=== PATIENT | female | born 1960 | race Caucasian/White ===

== ENCOUNTER 2016-07-15 14:42 | Emergency (ER) | payer OTHER ==
[~2016-07-15] VITALS: Wt 70.0 kg
[~2016-07-15 14:42] MED LIST: ALPR0.5T PO; BUTA1CAP39 PO; LIOT5TAB3 PO; LORA1TAB PO; NAPR-688 PO; PANT40TA4 PO; PROP60CA PO; SYN1 PO; TRAZ50TA18 PO; VALS160T20 PO; ZOLP5TAB6 PO
[2016-07-15] MEDS ORDERED: HYDROmorphONE 1 MG/ML SYG IV STA (18:56)
[2016-07-15] MEDS ORDERED: FAMOTIDINE 20 MG TAB PO STA (18:56)
[2016-07-15] MEDS ORDERED: SOD CHLORIDE 0.9% 500 ML IV STA (18:56)
[2016-07-15] MEDS ORDERED: LIDOCAINE/MYLANTA 40 ML BTL PO STA (18:56)
[2016-07-15 19:27] LABS: ADD SCAN DIFF NO
[2016-07-15 19:28] LABS: BASOPHILS % 0.7 % (0.0-2.0); EOSINOPHILS # 0.5 10^3/ul (0.0-0.5); EOSINOPHILS % 8.4 % (0.0-7.0); HEMATOCRIT 39.7 % (37.0-47.0); HEMOGLOBIN 13.8 g/dl (12.0-16.0); LYMPHOCYTES # 2.2 10^3/ul (0.8-2.9); LYMPHOCYTES % 40.8 % (15.0-51.0); MEAN CORPUSCULAR HEMOGLOBIN 30.1 pg (29.0-33.0); MEAN CORPUSCULAR HGB CONC 34.8 g/dl (32.0-37.0); MEAN CORPUSCULAR VOLUME 86.5 fl (82.0-101.0); MEAN PLATELET VOLUME 10.1 fl (7.4-10.4); MONOCYTE # 0.5 10^3/ul (0.3-0.9); MONOCYTES % 9.5 % (0.0-11.0); NEUTROPHIL # 2.2 10^3/ul (1.6-7.5); NEUTROPHILS % 40.4 % (39.0-77.0); PLATELET COUNT 267 10^3/UL (140-415); RED BLOOD COUNT 4.59 10^6/ul (4.20-5.40); WHITE BLOOD COUNT 5.5 10^3/ul (4.8-10.8)
[2016-07-15 19:38] LABS: ADD UMIC YES; URINE BILIRUBIN (Dip) NEGATIVE (NEGATIVE); URINE BLOOD (Dip) TRACE (NEGATIVE); URINE COLOR LT. YELLOW (YELLOW); URINE GLUCOSE (Dip) NEGATIVE (NEGATIVE); URINE KETONES (Dip) NEGATIVE (NEGATIVE); URINE LEUKOCYTE ESTERASE (Dip) NEGATIVE (NEGATIVE); URINE NITRITE (Dip) NEGATIVE (NEGATIVE); URINE TOTAL PROTEIN (Dip) NEGATIVE (NEGATIVE); URINE UROBILINOGEN (Dip) 0.2 E.U./dL (0.1-1.0)
[2016-07-15 19:56] LABS: SQUAMOUS EPITHELIAL CELL,UR FEW
--- NOTE | 2016-07-15 20:04 | RADRPT ---
PROCEDURE: CT abdomen and pelvis without contrast. CLINICAL INDICATION: Abdominal pain TECHNIQUE: CT scan of the abdomen and pelvis without contrast was performed. Sagittal and coronal reformatted images were obtained from the axial source images. CTDI = 13.74 mGy; DLP = 793.23 mGy-c m COMPARISON: Ultrasound 07/09/2014 FINDINGS: Visualized lower thorax: Mild traction type bronchiectasis of the lower lobes is present with minim al basilar scarring but no evidence of infiltrates. The visualized heart is top normal in size with minimal pericardial thickening. There is no evidence for pleural effusion. Liver, gallbladder, pancreas and spleen: The liver is now enlarged the maximum dimension measuring 22 cm. There is heterogeneous decibels no attenuation throughout the hepatic parenchyma consistent with hepatic steatosis, geographic areas of normal attenuation sparing seen scattered throughout the liver. There is no evidence for a liver mass or ductal dilatation. The gallbladder is unremarkabl e. No common bile duct abnormality is demonstrated. The pancreas is unremarkable. Punctate calcif ication of the splenic surface likely a granuloma, no splenomegaly is present. Adrenal glands and genitourinary system: The adrenal glands are normal bilaterally. In the right ki dney there are tiny nonobstructing calculi, a total of 2 stones visible age measure approximate 2 mm in the interpolar area. There is no hydronephrosis. The left kidney has approximately 401 mm calc koffi predominate in the upper pole without hydronephrosis. An area of cortex scarring in the posteri or left upper pole is noted. The ureters are unremarkable. No urinary bladder abnormality is demon strated. The uterus is not visualized consistent with prior hysterectomy. No ovarian or adnexal ma sses are demonstrated. Gastrointestinal system: A small sliding hiatal hernia is suspected, the remainder of the stomach i s unremarkable and without wall thickening. The small bowel is normal in caliber with no ileus, obs truction or wall thickening. The appendix and surrounding fat are within the limits of normal. A m oderate amount of fecal debris is seen within the proximal and mid colon. There is no evidence for colitis or diverticulitis. Peritoneum, retroperitoneum, lymph nodes and vessels: The abdominal aorta is normal in caliber. The re is no evidence for atherosclerotic calcification. The inferior vena cava is unremarkable. There is no evidence for adenopathy or mass. There is no ascites. No pneumoperitoneum is evident. Osseous structures and musculoskeletal findings: There is no fracture, lytic or blastic lesion. No muscular abnormality or soft tissue pathology is present. RPTAT:HJJR IMPRESSION: 1. Interval development of hepatomegaly and hepatic steatosis compared to the prior ultrasound of 07/09/2014. 2. Tiny bilateral nonobstructing intrarenal calculi, no ureteral calculi or hydronephrosis identifi ed. 3. Constipation pattern. 4. Sliding hiatal hernia. 5. Changes of prior hysterectomy. Nadeem Piña Physician Date Time Electronically viewed and signed by Nadeem Piña Physician on 07/15/2016 20:04 JR/
[2016-07-15 20:44] LABS: POTASSIUM 3.9 mmol/L (3.5-5.1)
[2016-07-15 20:47] LABS: ALBUMIN/GLOBULIN RATIO 1.35; BILIRUBIN,INDIRECT 0.4 mg/dl (0-1.1); BILIRUBIN,TOTAL 0.4 mg/dl (0.2-1.3); CALCIUM 9.9 mg/dl (8.4-10.2); CREATININE 0.64 mg/dl (0.44-1.00); TOTAL PROTEIN 8.7 g/dl (6.1-8.1)
[2016-07-15] MEDS ORDERED: AMLO5TAB4 PO (20:55)
[2016-07-15] MEDS ORDERED: VALS320T11 PO (20:55)
[2016-07-15 21:22] VITALS: BP 164/89; PULSE 60; RESP 18
[2016-07-15] MEDS ORDERED: FAMO-18 PO (21:22)
[2016-07-15] MEDS ORDERED: SUCR1TAB56 PO (21:22)
[2016-07-15] MEDS ORDERED: METO10TA92 PO (21:22)
--- NOTE | 2016-07-16 00:37 | ERD ---
ER Documentation Chief Complaint Date/Time DATE: 07/16/16 TIME: 00:30 Chief Complaint abd pain for the past 2 wks. no n/v. no diarrhea. no cp or sob HPI 56-year-old female with a history of hypertension and hypothyroidism presenting with epigastric pain. She states that she has had the pain intermittently for the past 2 weeks. She has had no associated nausea, vomiting, diarrhea, constipation, fevers or chills. Last week she had 3 days of dark stools which has since resolved. She denies any hematochezia. No weight loss or night sweats. The pain is worse with eating, improves with not eating. It is in the epigastric region, max 8 out of 10, radiating to her back. Currently she does not have much pain she states. She denies any NSAID use. Her primary care doctor is Dr. Steen, with whom she has an appointment in 1 week. ROS All systems reviewed and are negative except as per history of present illness. Medications Home Meds Active Scripts Sucralfate* (Carafate*) 1 Gm Tab, 1 GM PO QID, #60 TAB take before eating Prov:WALLY MACHUCA MD 07/15/16 Metoclopramide* (Reglan*) 10 Mg Tablet, 10 MG PO Q6 Y for NAUSEA AND/OR VOMITING , #10 TAB Prov:WALLY MACHUCA MD 07/15/16 Famotidine* (Pepcid*) 20 Mg Tablet, 20 MG PO BID, #28 TAB Prov:WALLY MACHUCA MD 07/15/16 Reported Medications Valsartan* (Diovan*) 320 Mg Tablet, 320 MG PO DAILY, TAB 07/15/16 Amlodipine Besylate* (Norvasc*) 5 Mg Tablet, 5 MG PO DAILY, TAB 07/15/16 Pantoprazole* (Pantoprazole*) 40 Mg Tablet.dr, 40 MG PO DAILY, TAB 11/29/14 Propranolol Hcl* (Propranolol Hcl*) 60 Mg Cap.sa.24h, 120 MG PO DAILY, TAB 05/23/14 Levothyroxine Sodium* (Synthroid*) 100 Mcg Tablet, 100 MCG PO DAILY, TAB 05/23/14 Discontinued Reported Medications Trazodone Hcl* (Trazodone Hcl*) 50 Mg Tablet, 25 MG PO HS Y for SLEEP, TAB 11/29/14 Zolpidem Tartrate* (Zolpidem Tartrate*) 5 Mg Tablet, 5 MG PO HS Y, TAB 11/29/14 Lorazepam* (Lorazepam*) 1 Mg Tablet, 1 MG PO HS Y for ANXIETY, TAB 11/29/14 Liothyronine Sodium* (Cytomel*) 5 Mcg Tablet, 5 MCG PO DAILY, TAB 05/23/14 Valsartan* (Diovan*) 160 Mg Tablet, 160 MG PO BID, TAB 05/23/14 Discontinued Scripts [id number]-Ydhkgjixlj-Dpipdahe-Codeine* (Fioricet w/ Codeine*) [id number] 30MG Capsule, 1 CAP PO Q6H Y for PAIN LEVEL 1-5, #20 CAP Prov:POOL MCCAIN NP 12/09/14 Naproxen* (Naproxen*) 500 Mg Tablet, 500 MG PO BID Y for PAIN, #30 TAB Prov:NICOLÁS HENAO MD 11/29/14 Alprazolam* (Xanax*) 0.5 Mg Tab, 0.5 MG PO Q8H Y for ANXIETY, #12 TAB Prov:NICOLÁS HENAO MD 11/29/14 Allergies Allergies: Coded Allergies: No Known Allergy (Unverified , 07/15/16) PMhx/Soc History of Surgery: Yes (hysterectomy, c/section x3) Anesthesia Reaction: No Hx Neurological Disorder: No Hx Respiratory Disorders: No Hx Cardiac Disorders: Yes (htn, ) Hx Psychiatric Problems: Yes (depression) Hx Miscellaneous Medical Probl: Yes (migraine, hypothyroid) Hx Alcohol Use: No Hx Substance Use: No Hx Tobacco Use: No Smoking Status: Never smoker FmHx Family History: other (Pancreatic cancer mother) Physical Exam Vitals Vital Signs Date Time Temp Pulse Resp B/P Pulse Ox O2 Delivery O2 Flow Rate FiO2 07/15/16 21:22 60 18 164/89 100 Room Air 07/15/16 15:21 98.9 61 21 160/78 95 Physical Exam Const: Nontoxic, well-appearing, no distress Head: Atraumatic Eyes: Normal Conjunctiva ENT: Normal External Ears, Nose and Mouth. Neck: Full range of motion..~ No meningismus. Resp: Clear to auscultation bilaterally Cardio: Regular rate and rhythm, no murmurs Abd: Soft, mild epigastric tenderness to palpation, no rebound or guarding, non distended. Normal bowel sounds Rectal: Normal tone, No mass Stool: Brown Guaiac: Negative Skin: No petechiae or rashes Back: No midline or flank tenderness Ext: No cyanosis, or edema Neur: Awake and alert Psych: Normal Mood and Affect Result Diagram: 07/15/16190507/15/161905 Results 24 hrs Laboratory Tests Test 07/15/16 19:06 07/15/16 21:15 White Blood Count 5.510^3/ul Red Blood Count 4.5910^6/ul Hemoglobin 13.8g/dl Hematocrit 39.7% Mean Corpuscular Volume 86.5fl Mean Corpuscular Hemoglobin 30.1pg Mean Corpuscular Hemoglobin Concent 34.8g/dl Red Cell Distribution Width 13.0% Platelet Count 69403^3/UL Mean Platelet Volume 10.1fl Neutrophils % 40.4% Lymphocytes % 40.8% Monocytes % 9.5% Eosinophils % 8.4% Basophils % 0.7% Nucleated Red Blood Cells % 0.0/100WBC Neutrophils # 2.210^3/ul Lymphocytes # 2.210^3/ul Monocytes # 0.510^3/ul Eosinophils # 0.510^3/ul Basophils # 0.010^3/ul Nucleated Red Blood Cells # 0.010^3/ul Urine Color LT. YELLOW Urine Clarity CLEAR Urine pH 7.0 Urine Specific [place] 1.010 Urine Ketones NEGATIVE Urine Nitrite NEGATIVE Urine Bilirubin NEGATIVE Urine Urobilinogen 0.2 E.U./dL Urine Leukocyte Esterase NEGATIVE Urine Microscopic RBC 2-5/HPF Urine Microscopic WBC 0-2/HPF Urine Squamous Epithelial Cells FEW Urine Hemoglobin TRACE Urine Glucose NEGATIVE% Urine Total Protein NEGATIVE Sodium Level 142mmol/L Potassium Level 3.9mmol/L Chloride Level 102mmol/L Carbon Dioxide Level 29mmol/L Anion Gap 15 Blood Urea Nitrogen 22mg/dl Creatinine 0.64mg/dl Glucose Level 102mg/dl Calcium Level 9.9mg/dl Total Bilirubin 0.4mg/dl Direct Bilirubin 0.00mg/dl Indirect Bilirubin 0.4mg/dl Aspartate Amino Transf (AST/SGOT) 41IU/L Alanine Aminotransferase (ALT/SGPT) 70IU/L Alkaline Phosphatase 97IU/L Total Protein 8.7g/dl Albumin 5.0g/dl Globulin 3.70g/dl Albumin/Globulin Ratio 1.35 Lipase 129U/L Stool Occult Blood NEGATIVE Current Medications Medications (Trade) Dose Ordered Sig/Jakub Route PRN Reason Start Time Stop Time Status Last Admin Dose Admin Sodium Chloride (NS) 500 ml @ 500 mls/hr Q1H STAT IV 07/15/16 18:56 07/15/16 19:55 DC 07/15/16 19:11 Hydromorphone HCl (Dilaudid) 1 mg ONCE STAT IV 07/15/16 18:56 07/15/16 18:58 DC 07/15/16 19:10 Famotidine (Pepcid) 20 mg ONCE STAT PO 07/15/16 18:56 07/15/16 18:58 DC 07/15/16 19:10 Miscellaneous Medication (Gi Cocktail (2)) 40 ml ONCE STAT PO 07/15/16 18:56 07/15/16 18:58 DC 07/15/16 19:10 Procedures/MDM EMERGENT LABS AND DIAGNOSTIC STUDIES: Lab Results above were reviewed and interpreted by me. CBC, CMP, lipase show no significant abnormalities 12-lead EKG was interpreted by Heath Machuca MD: Normal Sinus Rhythm with ventricular rate of 63 beats per minute Normal axis Normal intervals No acute ST or T wave changes suggestive of acute ischemia or STEMI. Radiology Results as interpreted by Radiology below were reviewed by SLee Machuca MD: CT abdomen and pelvis: IMPRESSION: 1. Interval development of hepatomegaly and hepatic steatosis compared to the prior ultrasound of 07/09/2014. 2. Tiny bilateral nonobstructing intrarenal calculi, no ureteral calculi or hydronephrosis identified. 3. Constipation pattern. 4. Sliding hiatal hernia. 5. Changes of prior hysterectomy. Physician Ronnie Date Time Electronically viewed and signed by Physician Ronnie on 07/15/2016 20:04 Initial Nursing notes reviewed. Previous Medical Records requested via the Electronic Health Record. EMERGENCY DEPARTMENT COURSE / MEDICAL DECISION MAKING: Patient is presenting with epigastric pain. Her vitals are normal. Differential includes but is not limited to biliary colic, biliary obstruction, acute cholecystitis, pancreatitis, hepatitis, lower lobe pneumonia, gastritis, colitis, cardiac pathology, aortic dissection, ureterolithiasis, pyelonephritis. Labs were ordered to evaluate for above and were unremarkable chest. I have a low suspicion for acute coronary syndrome, aortic dissection, or pneumonia. CT of the abdomen/pelvis was ordered and showed a hiatal hernia with some constipation, but no acute emergent pathology. Her rectal exam did not show blood and her FOBT was negative. I suspect the patient's pain is likely secondary to gastritis versus peptic ulcer disease. However she is stable for continued outpatient follow-up and does not need admission at this time as she does not have any active bleeding. Her pain was controlled after pain medications. She remained hemodynamically stable while in the ED. I recommended she see her primary care doctor as scheduled to discuss referral to a garment supervisor for possible endoscopy. I will place her on Pepcid, sucralfate, and give her Reglan to use as needed on discharge. Return precautions were discussed. She was provided with a copy of her results from today. Patient's blood pressure was elevated (>120/80) but appears stable without evidence of hypertensive emergency or urgency. The patient was counseled about the risks of hypertension and urged to pursue outpatient monitoring and therapy within a week with their primary care physician. Departure Diagnosis: Primary Impression: Epigastric abdominal pain Additional Impression: Hiatal hernia Condition: Stable Patient Instructions: Gastritis Vs. Ulcer, Epigastric Pain (Uncertain Cause) Referrals: SYDNEE STEEN MD (PCP) Additional Instructions: Follow-up as scheduled with your primary care doctor. You will need a referral to a garment supervisor. Return to the ER for any worsening symptoms. WALLY MACHUCA MD Jul 16, 2016 00:37
== END 2016-07-15 22:27 | disposition home or self-care (01) ==
LOC: E/R 14:42
DX: R10.13 Epigastric pain (principal); K44.9 Diaphragmatic hernia without obstruction or gangrene; I10 Essential (primary) hypertension; E03.9 Hypothyroidism, unspecified
CPT/HCPCS: 74176; 80053; 81001; 81003; 82270; 83690; 85025; 93005; J1170; J7040; 36415; 96374

== ENCOUNTER 2018-11-16 20:42 | Emergency (ER) | payer OTHER ==
[~2018-11-16] VITALS: Ht 167.6 cm; Wt 76.5 kg
[~2018-11-16 20:42] MED LIST changes: -ALPR0.5T PO; +AMLO5TAB4 PO; -BUTA1CAP39 PO; +CEPH-443 PO; +FAMO-96 PO; +LEVO-86 PO; -LIOT5TAB3 PO; -LORA1TAB PO; +METO10TA92 PO; -NAPR-688 PO; +OMEP40CA6 PO; +OXYC-279 PO; +SUCR1TAB56 PO; -SYN1 PO; -TRAZ50TA18 PO; -VALS160T20 PO; +VALS320T2 PO; -ZOLP5TAB6 PO
[2018-11-16 21:02] VITALS: Ht 167.6 cm; Wt 76.5 kg
--- NOTE | 2018-11-16 23:24 | ERD ---
ER Documentation Chief Complaint Chief Complaint EPIGASTRIC & MID STERNAL CP SINCE YESTERDAY WITH SOB HX OF HTN & ANXIETY HPI This is a 58-year-old woman with a history of H. pylori gastritis presenting with epigastric abdominal pain similar to prior episodes, she states the pain has been intermittent since yesterday usually lasting for about 1 to 3 hours and then resolving, she has had chest pain, headache, shortness of breath, dizziness as well. While in the waiting room she "fainted", this episode was witnessed and there was no seizure activity. Patient is not currently taking medications for gastritis, she has had no blood per rectum or melena, no fevers or chills, no dysuria. ROS All systems reviewed and are negative except as per history of present illness. Medications Home Meds Active Scripts Omeprazole* (Omeprazole*) 40 Mg Capsule., 40 MG PO DAILY, #30 CAP Prov:NICOLÁS HENAO MD 11/17/18 Cephalexin* (Keflex*) 500 Mg Capsule, 500 MG PO QID for 7 Days, CAP Prov:NICOLÁS HENAO MD 11/17/18 Oxycodone HCl/Acetaminophen (Percocet 5-325 mg Tablet) 1 Each Tablet, 1 EACH PO TID PRN for PAIN LEVEL 6-10, #12 TAB Prov:NICOLÁS HENAO MD 11/17/18 Sucralfate* (Carafate*) 1 Gm Tab, 1 GM PO QID, #60 TAB take before eating Prov:WALLY COLEMAN MD 07/15/16 Metoclopramide* (Reglan*) 10 Mg Tablet, 10 MG PO Q6 PRN for NAUSEA AND/OR VOMITING, #10 TAB Prov:WALLY COLEMAN MD 07/15/16 Famotidine* (Pepcid*) 20 Mg Tablet, 20 MG PO BID, #28 TAB Prov:WALLY COLEMAN MD 07/15/16 Reported Medications Valsartan* (Diovan*) 320 Mg Tablet, 320 MG PO DAILY, TAB 07/15/16 Amlodipine Besylate* (Norvasc*) 5 Mg Tablet, 5 MG PO DAILY, TAB 07/15/16 Pantoprazole* (Pantoprazole*) 40 Mg Tablet., 40 MG PO DAILY, TAB 11/29/14 Propranolol Hcl* (Propranolol Hcl*) 60 Mg Cap.sa.24h, 120 MG PO DAILY, TAB 05/23/14 Levothyroxine Sodium* (Synthroid*) 100 Mcg Tablet, 100 MCG PO DAILY, TAB 05/23/14 Allergies Allergies: Coded Allergies: No Known Allergy (Unverified , 07/15/16) PMhx/Soc Hypertension, hypothyroidism, anxiety History of Surgery: Yes (hysterectomy, c/section x3) Anesthesia Reaction: No Hx Neurological Disorder: No Hx Respiratory Disorders: No Hx Cardiac Disorders: Yes (htn, ) Hx Psychiatric Problems: Yes (depression) Hx Miscellaneous Medical Probl: Yes (migraine, hypothyroid) Hx Alcohol Use: No Hx Substance Use: No Hx Tobacco Use: No FmHx Family History: No diabetes Physical Exam Vitals Vital Signs Date Temp Pulse Resp B/P (MAP) Pulse Ox O2 O2 Flow FiO2 Time Delivery Rate 11/17/18 61 18 169/87 96 Room Air 00:15 (114) 11/16/18 70 18 225/105 100 Room Air 23:17 (145) 11/16/18 97.1 82 18 163/74 98 21:02 (103) Physical Exam GENERAL: Well-developed, well-nourished, well-hydrated, anxious, afebrile HEENT: Moist mucous membranes, pink conjunctiva, no cervical spine tenderness or step-off deformities, no goiter, no jaundice or icterus, extraocular movements intact without pain. No submandibular induration, and no pharyngeal erythema NEURO: Alert and oriented 3, cranial nerves II through XII intact bilaterally, pupils equal round reactive to light, no focal deficits or facial asymmetry, sensation intact distally Strength 5/5 in upper and lower extremities bilaterally CARDIAC: Regular rate and rhythm, no murmurs rubs or gallops LUNGS: Clear bilaterally no wheezing crackles or stridor ABDOMEN: Soft nontender, no guarding, no rigidity, no rebound, no psoas sign no obturator sign. Normoactive bowel sounds SKIN: Warm and dry to touch, no abrasions, contusions, or hematomas, no lacerations, no ecchymosis, no target lesions, and without ulcers EXTREMITIES: No clubbing cyanosis or edema, calves are bilaterally symmetrical, no Homans sign, no popliteal cord sign. Distal pulses equal and bilateral PSYCH: Anxious Result Diagram: 8/2/19 0001 11/17/18 0001 Results 24 hrs Laboratory Tests Test 11/16/18 23:30 11/17/18 00:01 Urine Color YELLOW Urine Clarity CLEAR Urine pH 6.0 Urine Specific [place] 1.020 Urine Ketones NEGATIVE mg/dL Urine Nitrite NEGATIVE mg/dL Urine Bilirubin NEGATIVE mg/dL Urine Urobilinogen NEGATIVE mg/dL Urine Leukocyte Esterase 1+ Juan/ul Urine Microscopic RBC 4 /HPF Urine Microscopic WBC 9 /HPF Urine Squamous Epithelial Cells FEW /HPF Urine Bacteria FEW /HPF Urine Mucus FEW /HPF Urine Hemoglobin 2+ mg/dL Urine Glucose NEGATIVE mg/dL Urine Total Protein NEGATIVE mg/dl White Blood Count 6.2 10^3/ul Red Blood Count 4.41 10^6/ul Hemoglobin 12.9 g/dl Hematocrit 39.1 % Mean Corpuscular Volume 88.7 fl Mean Corpuscular Hemoglobin 29.3 pg Mean Corpuscular Hemoglobin Concent 33.0 g/dl Red Cell Distribution Width 13.1 % Platelet Count 245 10^3/UL Mean Platelet Volume 9.5 fl Immature Granulocytes % 0.800 % Neutrophils % 61.5 % Lymphocytes % 24.4 % Monocytes % 10.3 % Eosinophils % 2.7 % Basophils % 0.3 % Nucleated Red Blood Cells % 0.0 /100WBC Immature Granulocytes # 0.050 10^3/ul Neutrophils # 3.8 10^3/ul Lymphocytes # 1.5 10^3/ul Monocytes # 0.6 10^3/ul Eosinophils # 0.2 10^3/ul Basophils # 0.0 10^3/ul Nucleated Red Blood Cells # 0.0 10^3/ul Sodium Level 138 mmol/L Potassium Level 3.4 mmol/L Chloride Level 105 mmol/L Carbon Dioxide Level 24 mmol/L Anion Gap 9 Blood Urea Nitrogen 29 mg/dl Creatinine 0.88 mg/dl Est Glomerular Filtrat Rate mL/min > 60 mL/min Glucose Level 178 mg/dl Calcium Level 9.5 mg/dl Total Bilirubin 0.6 mg/dl Direct Bilirubin 0.00 mg/dl Indirect Bilirubin 0.6 mg/dl Aspartate Amino Transf (AST/SGOT) 22 IU/L Alanine Aminotransferase (ALT/SGPT) 39 IU/L Alkaline Phosphatase 101 IU/L Troponin I < 0.012 ng/ml Total Protein 6.4 g/dl Albumin 4.0 g/dl Globulin 2.40 g/dl Albumin/Globulin Ratio 1.66 Lipase 87 U/L Current Medications Medications Dose Sig/Jakub Start Time Status Last (Trade) Ordered Route PRN Stop Time Admin Dose Reason Admin Lorazepam 0.5 mg ONCE ONCE 11/16/18 DC 11/17/18 (Ativan) IV 23:30 11/16/18 00:22 23:31 Sodium 1,000 ml @ Q1H STAT 11/16/18 DC 11/17/18 Chloride 1,000 mls/hr IV 23:30 11/17/18 00:22 00:29 Ondansetron 4 mg ONCE STAT 11/16/18 DC 11/17/18 HCl (Zofran IV 23:30 11/16/18 00:22 Inj) 23:31 40 ml ONCE STAT 11/16/18 DC 11/17/18 Miscellaneous PO 23:30 11/16/18 00:22 Medication 23:31 (Gi Cocktail (2)) Belladonna/ 2 tab ONCE STAT 11/16/18 DC 11/17/18 Phenobarbital PO 23:30 11/16/18 00:22 () 23:32 Ketorolac 15 mg ONCE STAT 11/16/18 DC 11/17/18 Tromethamine IV 23:30 11/16/18 00:22 (Toradol) 23:32 Cephalexin 500 mg ONCE ONCE 11/17/18 DC (Keflex) PO 01:30 11/17/18 01:31 Procedures/MDM IV line was established patient was placed on door patcher rhythm strip revealed a sinus rhythm at about 80 bpm with upright P and T waves. Patient was afebrile EKG performed, read by me revealed a normal sinus rhythm 83 bpm, normal axis, narrow QRS complex, no concerning ST elevations or depressions noted CT scan of the abdomen and pelvis was performed, given the patient's symptoms. IMPRESSION: Limited evaluation for wall thickening along the distal transverse, descending, and rectosigmoid colon. Colitis cannot be excluded in these regions. Normal appendix. Nonobstructing stones in both kidneys measuring up to 4 mm on the right. Status post hysterectomy. Besides what is suggested on the CT scan of the abdomen pelvis, patient has no signs or symptoms of infectious colitis. Her abdominal exam is benign she has no diarrhea, blood per rectum, or melena. She has had no recent travel or recent antibiotic use. I administered 1 L normal saline IV, Toradol 15 mg IV, Zofran 4 mg IV, GI cocktail p.o., Ativan 0.5 mg IV CBC and electrolytes are normal, liver function tests were normal, troponin was negative, urinalysis revealed acute UTI I treated the patient here with cephalexin 500 mg p.o. Per the patient she does have a history of H. pylori positive gastritis and given her past medical history I will treat her as an outpatient with PPI therapy until she can follow-up with PMD for possible GI referral and upper endoscopy. Patient's vital signs are normal at this time and all of her symptoms have improved with above therapy, she has no complaints of chest pain, headache, or abdominal pain. She looks well and will be discharged to follow-up with PMD for continued outpatient management Differential diagnoses considered, included but not limited to acute coronary syndrome, pulmonary embolism, aortic dissection, abdominal aortic aneurysm, sepsis, stroke, meningitis, encephalitis, pneumonia, appendicitis, cholecystitis, bowel obstruction, pyelonephritis, nephrolithiasis, cystitis, as well as metabolic, hematologic, and electrolyte abnormalities. As well as abscess, cellulitis, fractures, and dislocations. Patient feels much better at this time, and vital signs are normal, symptoms have improved. I did give strict instructions to return to the ED if symptoms continue or worsen, patient will otherwise follow-up with primary care physician. Patient understood instructions and agreed to plan. Disclaimer: Inadvertent spelling and grammatical errors are likely due to EHR/dictation software use and do not reflect on the overall quality of patient care. Also, please note that the electronic time recorded on this note does not necessarily reflect the actual time of the patient encounter. Departure Diagnosis: Primary Impression: Epigastric abdominal pain Additional Impressions: Headache Headache type: tension-type Headache chronicity pattern: acute headache Intractability: not intractable Qualified Codes: G44.209 - Tension-type headache, unspecified, not intractable Chest pain Chest pain type: unspecified Qualified Codes: R07.9 - Chest pain, unspecified Hypertension Hypertension type: essential hypertension Qualified Codes: I10 - Essential (primary) hypertension Acute anxiety Acute UTI Condition: NICOLÁS Granados MD Nov 16, 2018 23:24
[2018-11-16] MEDS ORDERED: LIDOCAINE/MYLANTA 40 ML BTL PO STA (23:30)
[2018-11-16] MEDS ORDERED: ONDANSETRON 4 MG INJ IV STA (23:30)
[2018-11-16] MEDS ORDERED: BELLADONNA/PHENOBARBITAL TAB PO STA (23:30)
[2018-11-16] MEDS ORDERED: LORAZEPAM 2 MG INJ IV ONE (23:30)
[2018-11-16] MEDS ORDERED: SOD CHLORIDE 0.9% 1,000 ML IV STA (23:30)
[2018-11-16] MEDS ORDERED: KETOROLAC 15 MG INJ IV STA (23:30)
[2018-11-17] MEDS ORDERED: CEPHALEXIN 500 MG CAP PO ONE (01:30)
[2018-11-17 02:00] VITALS: BP 107/66; PULSE 63; RESP 17
== END 2018-11-17 02:11 | disposition home or self-care (01) ==
LOC: E/R 20:42
DX: R10.13 Epigastric pain (principal); I10 Essential (primary) hypertension; E03.9 Hypothyroidism, unspecified; G44.209 Tension-type headache, unspecified, not intractable; F41.9 Anxiety disorder, unspecified; N39.0 Urinary tract infection, site not specified; R40.2142 Coma scale, eyes open, spontaneous, at arrival to emergency department; R40.2362 Coma scale, best motor response, obeys commands, at arrival to emergency department; R40.2252 Coma scale, best verbal response, oriented, at arrival to emergency department
CPT/HCPCS: 36415; 74176; 80053; 81001; 83690; 84484; 85025; 93005; 96374; 96375; 99285; J1885; J2060; J2405; J7030